=== PATIENT | female | born 1975 | race African-American/Black ===

== ENCOUNTER 2016-09-05 23:20 | Emergency (ER) | payer MEDICARE, MEDICAID ==
[~2016-09-05] VITALS: Ht 157.5 cm; Wt 79.0 kg
[~2016-09-05 23:20] MED LIST: DIVA-18 PO; QUET300T2 PO
[2016-09-06 01:45] VITALS: BP 120/80
== END 2016-09-06 02:38 | disposition home or self-care (01) ==
LOC: ER 23:20
DX: N93.9 Abnormal uterine and vaginal bleeding, unspecified (principal); F31.9 Bipolar disorder, unspecified; G40.909 Epilepsy, unspecified, not intractable, without status epilepticus; Z88.8 Allergy status to other drugs, medicaments and biological substances
CPT/HCPCS: 99283

== ENCOUNTER 2016-12-08 13:51 | Emergency (ER) | payer MEDICARE, MEDICAID ==
[~2016-12-08] VITALS: Ht 165.1 cm; Wt 80.0 kg
[2016-12-08 14:44] LABS: CLARITY URINE TURBID (CLEAR); COLOR URINE YELLOW (YELLOW); GLUCOSE URINE NEGATIVE (NEGATIVE); KETONES URINE NEGATIVE (NEGATIVE); LEUKOCYTE ESTERASE URINE TRACE (NEGATIVE); NITRITE URINE NEGATIVE (NEGATIVE); OCCULT BLOOD URINE TRACE (NEGATIVE); PH URINE 7.5 (4.5-8.0); PROTEIN URINE NEGATIVE (NEGATIVE); SPECIFIC GRAVITY URINE 1.022 (1.005-1.030); UROBILINOGEN URINE 0.2 E.U./dL (0.2-1.0)
[2016-12-08 14:47] LABS: BASOPHILS % 0.7 % (0.0-2.0); EOSINOPHILS % 0.7 % (0.0-5.0); HEMATOCRIT. 38.5 % (36.0-48.0); HEMOGLOBIN. 13.2 g/dL (12.0-16.0); LYMPHOCYTES % 33.3 % (20.0-50.0); MEAN CORPUSCULAR VOLUME 87.6 fL (81.0-99.0); MEAN PLATELET VOLUME 9.6 fl (7.4-10.4); MONOCYTES % 6.9 % (2.0-8.0); NEUTROPHILS % 58.4 % (40.0-76.0); PLATELET 188 x1000/uL (130-400); RED CELL DISTRIBUTION WIDTH 13.5 % (11.6-14.6)
[2016-12-08 14:48] LABS: UCG SCREEN NEGATIVE
[2016-12-08 14:52] LABS: CHLORIDE 108 mEq/L (98-107)
[2016-12-08 15:00] LABS: CARBON DIOXIDE 29 mEq/L (21-32); ETHANOL BLOOD < 10 mg/dL
[2016-12-08 15:20] LABS: *AMPHETAMINES SCREEN URINE NEGATIVE (NEGATIVE); *BARBITURATES SCREEN URINE NEGATIVE (NEGATIVE); *BENZODIAZEPINES SCREEN URINE NEGATIVE (NEGATIVE); *COCAINE SCREEN URINE NEGATIVE (NEGATIVE); CANNABINOID URINE SCREEN NEGATIVE (NEGATIVE); METHADONE URINE SCREEN NEGATIVE (NEGATIVE); OPIATES URINE SCREEN NEGATIVE (NEGATIVE); PHENCYCLIDINE URINE SCREEN NEGATIVE (NEGATIVE)
[2016-12-08 16:48] LABS: CARBAMAZEPINE 5.1 ug/mL (4-12)
[2016-12-08 20:33] LABS: CARBAMAZEPINE 4.5 ug/mL (4-12)
[2016-12-08 22:49] VITALS: BP 110/63
== END 2016-12-08 22:49 | disposition home or self-care (01) ==
LOC: ER 14:30
DX: T42.1X2A Poisoning by iminostilbenes, intentional self-harm, initial encounter (principal); F31.89 Other bipolar disorder; Y92.89 Other specified places as the place of occurrence of the external cause; G40.909 Epilepsy, unspecified, not intractable, without status epilepticus; Z88.8 Allergy status to other drugs, medicaments and biological substances; R45.851 Suicidal ideations
CPT/HCPCS: 36415; 80053; 80156; 80165; 80305; 80307; 80329; 81001; 81025; 85025; 93005; 99285; G0482

== ENCOUNTER → 2017-03-17 | Outpatient (CLI) | payer MEDICARE, MEDICAID | END | disposition home or self-care (01) | LOC: MRI 12:44 | PROVIDERS: ATTEND Neurological Surgery | DX: M54.2 Cervicalgia (principal) | CPT/HCPCS: 72141 ==

== ENCOUNTER 2017-08-21 21:21 | Emergency (ER) | payer MEDICAID, MEDICARE ==
[~2017-08-21] VITALS: Ht 160 cm; Wt 69.0 kg
[2017-08-21] MEDS ORDERED: CARB200T PO (22:10)
[2017-08-21] MEDS ORDERED: CITA10TA16 PO (22:10)
[2017-08-21 22:26] VITALS: BP 114/58
[2017-08-21] MEDS ORDERED: ONDANSETRON 4MG ODT PO STA (22:30)
[2017-08-21 22:53] LABS: BASOPHILS % 0.2 % (0.0-2.0); HEMATOCRIT. 42.7 % (36.0-48.0); HEMOGLOBIN. 14.5 g/dL (12.0-16.0); LYMPHOCYTES % 27.9 % (20.0-50.0); MEAN CORPUSCULAR HEMOGLOBIN 31.3 pg (28.0-32.0); MEAN CORPUSCULAR VOLUME 92.1 fL (81.0-99.0); MEAN PLATELET VOLUME 10.1 fl (7.4-10.4); MONOCYTES % 7.5 % (2.0-8.0); NEUTROPHILS % 64.4 % (40.0-76.0); PLATELET 179 x1000/uL (130-400); RED BLOOD CELL COUNT 4.64 mill/uL (4.2-5.4); RED CELL DISTRIBUTION WIDTH 13.9 % (11.6-14.6)
[2017-08-21 22:54] LABS: CHLORIDE 102 mEq/L (98-107)
[2017-08-21 22:56] LABS: INR 1.3; PROTHROMBIN TIME 13.5 sec (9.4-11.6)
[2017-08-21 23:01] LABS: HCG SCREEN NEGATIVE
[2017-08-21 23:35] LABS: AMMONIA 18 uMol/L (<32)
== END 2017-08-22 00:42 | disposition home or self-care (01) ==
LOC: ER 21:59
DX: F31.9 Bipolar disorder, unspecified (principal); T42.6X5A Adverse effect of other antiepileptic and sedative-hypnotic drugs, initial encounter; R56.9 Unspecified convulsions; R74.0 Nonspecific elevation of levels of transaminase and lactic acid dehydrogenase [LDH]; Y92.9 Unspecified place or not applicable
CPT/HCPCS: 36415; 71045; 80053; 80165; 82140; 82962; 83690; 84703; 85025; 85610; 99285; Q0162

== ENCOUNTER 2017-08-23 13:24 | Inpatient (IN) | payer MEDICARE, MEDICAID ==
[~2017-08-23] VITALS: Ht 167.6 cm; Wt 93.0 kg
[~2017-08-23 13:24] MED LIST changes: +CARB200T PO; +CITA10TA16 PO
[2017-08-23] MEDS ORDERED: SODIUM CHLORIDE 0.9% 1,000 ML IV ONE (13:50)
[2017-08-23 14:35] LABS: CLARITY URINE TURBID (CLEAR); COLOR URINE DARK YELLOW (YELLOW); KETONES URINE TRACE (NEGATIVE); LEUKOCYTE ESTERASE URINE 1+ (NEGATIVE); NITRITE URINE POSITIVE (NEGATIVE); OCCULT BLOOD URINE 2+ (NEGATIVE); PH URINE 5.5 (4.5-8.0); PROTEIN URINE 3+ (NEGATIVE); SPECIFIC GRAVITY URINE 1.024 (1.005-1.030)
[2017-08-23 14:55] LABS: *AMPHETAMINES SCREEN URINE NEGATIVE (NEGATIVE); *BARBITURATES SCREEN URINE NEGATIVE (NEGATIVE); *BENZODIAZEPINES SCREEN URINE NEGATIVE (NEGATIVE); *COCAINE SCREEN URINE NEGATIVE (NEGATIVE); CANNABINOID URINE SCREEN NEGATIVE (NEGATIVE); METHADONE URINE SCREEN NEGATIVE (NEGATIVE); OPIATES URINE SCREEN NEGATIVE (NEGATIVE); PHENCYCLIDINE URINE SCREEN NEGATIVE (NEGATIVE)
[2017-08-23 15:18] LABS: HEMATOCRIT. 43.1 % (36.0-48.0); HEMOGLOBIN. 14.5 g/dL (12.0-16.0); MEAN CORPUSCULAR HEMOGLOBIN 31.5 pg (28.0-32.0); MEAN CORPUSCULAR VOLUME 93.7 fL (81.0-99.0); MEAN PLATELET VOLUME 10.2 fl (7.4-10.4); PLATELET 139 x1000/uL (130-400)
[2017-08-23 15:19] LABS: CHLORIDE 99 mEq/L (98-107)
[2017-08-23 15:24] LABS: ETHANOL BLOOD < 10 mg/dL
[2017-08-23 15:27] LABS: PROTHROMBIN TIME 68.1 sec (9.4-11.6)
[2017-08-23 15:30] LABS: AMMONIA 278 uMol/L (<32); CARBAMAZEPINE 8.5 ug/mL (4-12); INR 6.6
[2017-08-23 15:34] LABS: HCG SCREEN NEGATIVE
[2017-08-23] MEDS ORDERED: SODIUM CHLORIDE 0.9% 1000ML BAG (SEPSIS BOLUS) IV ONE (15:45)
[2017-08-23] MEDS ORDERED: LACTULOSE 20G/30ML UDC PO ONE (15:45)
[2017-08-23] MEDS ORDERED: PIPERACILLIN/TAZ 3.375G PREMIX 50 ML IV ONE (15:45)
[2017-08-23 16:22] LABS: PROTHROMBIN TIME 68.8 sec (9.4-11.6)
[2017-08-23 16:28] LABS: INR 6.6
[2017-08-23] MEDS ORDERED: VANCOMYCIN 1 G PREMIX 200 ML IV SCH (16:30)
[2017-08-23 16:54] LABS: PLATELET ESTIMATE NORMAL
[2017-08-23] MEDS ORDERED: DEXTROSE 50% WATER 50ML SYRINGE IV ONE ×2 (17:15→17:30)
[2017-08-23] MEDS ORDERED: ACETYLCYSTEINE IV ONE ×3 (17:30→23:30)
[2017-08-23] MEDS ORDERED: SODIUM CHLORIDE 0.9% IV ONE ×3 (17:30→23:30)
[2017-08-23] MEDS ORDERED: ACETYLCYSTEINE 200MG/ML 20% VIAL 30ML (INJ) IV ONE ×2 (17:30→21:45)
[2017-08-23] MEDS ORDERED: PHYTONADIONE 10MG/ML AMP IV SCH (18:00)
[2017-08-23] MEDS ORDERED: PHYTONADIONE 10MG/ML AMP IV ONE (18:00)
[2017-08-23] MEDS ORDERED: LORAZEPAM 2MG/ML CPJ IV ONE (18:45)
[2017-08-23] MEDS ORDERED: DEXT 5%/0.9% NACL 1,000 ML IV ONE (18:45)
[2017-08-23 20:45] VITALS: BP 123/64
[2017-08-23 21:00] VITALS: BP 123/64
[2017-08-23 21:25] VITALS: BP 127/99
[2017-08-23] MEDS ORDERED: PIPERACILLIN/TAZOBACTAM 2.25 G in DEXTROSE 5% WATER 50 ML IV SCH (22:00)
[2017-08-23] MEDS: DEXT 5%/0.45% NACL 1000ML 1,000 ML IV SCH (23:21)
[2017-08-23] MEDS: LACTULOSE 20G/30ML UDC PO SCH (23:21)
[2017-08-23 23:22] VITALS: BP 139/80
[2017-08-23] MEDS: PHYTONADIONE 10MG/ML AMP IV SCH (23:50)
[2017-08-23 23:52] VITALS: BP 128/70
[2017-08-23 23:53] LABS: CREATINE KINASE 260 IU/L (26-192)
[2017-08-24] VITALS (60 sets, daily range): BP systolic 106–207; BP diastolic 53–173
[2017-08-24] MEDS ORDERED: PHYTONADIONE 10MG/ML AMP IV ONE
[2017-08-24] MEDS: PIPERACILLIN/TAZ 3.375G PREMIX 50 ML IV SCH ×3 (01:12→16:00)
[2017-08-24 06:00] LABS: HEMATOCRIT. 39.2 % (36.0-48.0); HEMOGLOBIN. 13.5 g/dL (12.0-16.0); MEAN CORPUSCULAR HEMOGLOBIN 31.6 pg (28.0-32.0); MEAN CORPUSCULAR VOLUME 91.4 fL (81.0-99.0); MEAN PLATELET VOLUME 9.9 fl (7.4-10.4); RED BLOOD CELL COUNT 4.29 mill/uL (4.2-5.4); RED CELL DISTRIBUTION WIDTH 13.8 % (11.6-14.6)
[2017-08-24 06:07] LABS: CHLORIDE 108 mEq/L (98-107); PARTIAL THROMBOPLASTIN TIME 45.7 sec (23.4-31.0)
[2017-08-24 06:12] LABS: AMYLASE 89 IU/L (25-115)
[2017-08-24 06:14] LABS: PROTHROMBIN TIME 74.9 sec (9.4-11.6)
[2017-08-24 06:35] LABS: INR 7.2
[2017-08-24 06:42] LABS: AMMONIA 279 uMol/L (<32)
[2017-08-24] MEDS: LACTULOSE 20G/30ML UDC PO SCH ×3 (06:51→18:54)
[2017-08-24] MEDS: DEXT 5%/0.45% NACL 1000ML 1,000 ML IV SCH ×3 (06:51→21:25)
[2017-08-24] MEDS: PHYTONADIONE 10MG/ML AMP IV SCH (06:51)
[2017-08-24] MEDS ORDERED: PANTOPRAZOLE SODIUM 40 MG/VIAL IV SCH (09:00)
[2017-08-24] MEDS ORDERED: ETOMIDATE 2MG/ML 10ML VIAL IV ONE (09:21)
[2017-08-24] MEDS ORDERED: VECURONIUM BROMIDE 10 MG/VIAL IV ONE (09:21)
[2017-08-24 10:27] LABS: PLATELET 112 x1000/uL (130-400)
[2017-08-24 11:33] LABS: HEPATITIS B SURFACE ANTIGEN NEGATIVE
[2017-08-24 12:01] LABS: HEPATITIS B CORE AB IGM NEGATIVE
[2017-08-24 12:02] LABS: HEPATITIS A AB IGM NEGATIVE (NEGATIVE)
[2017-08-24 12:40] LABS: BG BASE EXCESS -3.4 mmol/L (-2.0-2.0); BG CARBOXYHEMOGLOBIN 0.8 % (0.5-1.5); BG DEOXYHEMOGLOBIN 6.5 % (0.0-5.0); BG FRACTION INSPIRED OXYGEN 21; BG HCO3 ACT 16.7 mmol/L (22.0-26.0); BG OXYGEN SATURATION 93.4 % (92.0-98.5); BG OXYHEMOGLOBIN 92.7 % (94.0-97.0); BG PCO2 19.8 mmHg (35.0-45.0); BG PH 7.544 (7.350-7.450); BG PO2 64.5 mmHg (75.0-100.0); BG SAMPLE SITE RIGHT RADIAL; BG TOTAL HEMOGLOBIN 13.5 g/dL (12.0-18.0); BG VENT MODE ROOM AIR
[2017-08-24] MEDS ORDERED: NOREPINEPHRINE 16 MG in DEXT 5% WATER 484 ML IV PRN (15:30)
[2017-08-24] MEDS ORDERED: FENTANYL CITRATE/PF 500 MCG in SODIUM CHLORIDE 0.9% 40 ML IV PRN (15:30)
[2017-08-24 17:23] LABS: BG CARBOXYHEMOGLOBIN 0.6 % (0.5-1.5); BG FRACTION INSPIRED OXYGEN 70; BG HCO3 ACT 20.4 mmol/L (22.0-26.0); BG METHEMOGLOBIN 0.2 % (0.0-1.5); BG OXYHEMOGLOBIN 96.2 % (94.0-97.0); BG PCO2 43.1 mmHg (35.0-45.0); BG PH 7.292 (7.350-7.450); BG PO2 108.5 mmHg (75.0-100.0); BG SAMPLE SITE RIGHT RADIAL; BG TIDAL VOLUME(mL) 500 mL; BG TOTAL HEMOGLOBIN 14.8 g/dL (12.0-18.0); BG VENT MODE VENT - A/C; BG VENT RATE 12 set
[2017-08-24 17:25] LABS: HEMATOCRIT 41.3 % (36.0-48.0); HEMOGLOBIN 14.3 g/dL (12.0-16.0)
[2017-08-24] MEDS ORDERED: LABETALOL 5MG/ML SYR 20 MG/4 ML SYRINGE IV PRN (21:15)
[2017-08-24] MEDS: PANTOPRAZOLE SODIUM 40 MG/VIAL IV SCH (21:25)
[2017-08-24] MEDS: MIDAZOLAM HCL 100 MG in DEXT 5% WATER 80 ML IV PRN (23:28)
[2017-08-25] VITALS (57 sets, daily range): BP systolic 46–268; BP diastolic 32–239
[2017-08-25] MEDS: LACTULOSE 20G/30ML UDC PO SCH ×2 (00:16→06:05)
[2017-08-25] MEDS: PIPERACILLIN/TAZ 3.375G PREMIX 50 ML IV SCH ×3 (00:16→18:44)
[2017-08-25] MEDS: LORAZEPAM 2MG/ML CPJ IV PRN ×3 (01:25→07:04)
[2017-08-25 02:00] LABS: HEMATOCRIT 39.5 % (36.0-48.0); HEMOGLOBIN 13.4 g/dL (12.0-16.0)
[2017-08-25] MEDS ORDERED: ACETAMINOPHEN 650MG/20.3ML UDC PO PRN (05:45)
[2017-08-25] MEDS: DEXT 5%/0.45% NACL 1000ML 1,000 ML IV SCH ×3 (06:06→20:53)
[2017-08-25 06:14] LABS: CHLORIDE 110 mEq/L (98-107)
[2017-08-25 06:22] LABS: INR 3.7; PROTHROMBIN TIME 38.3 sec (9.4-11.6)
[2017-08-25 06:45] LABS: HEMATOCRIT. 38.5 % (36.0-48.0); HEMOGLOBIN. 13.4 g/dL (12.0-16.0); MEAN CORPUSCULAR HEMOGLOBIN 31.5 pg (28.0-32.0); MEAN CORPUSCULAR VOLUME 90.7 fL (81.0-99.0); PLATELET 114 x1000/uL (130-400); RED BLOOD CELL COUNT 4.24 mill/uL (4.2-5.4); RED CELL DISTRIBUTION WIDTH 13.6 % (11.6-14.6)
[2017-08-25 06:51] LABS: AMMONIA 402 uMol/L (<32)
[2017-08-25] MEDS ORDERED: LORAZEPAM 2MG/ML CPJ IV SCH ×2 (07:00→07:30)
[2017-08-25] MEDS ORDERED: LORAZEPAM 2MG/ML CPJ ONE (07:05)
[2017-08-25] MEDS ORDERED: LORAZEPAM 20 MG in DEXT 5% WATER 90 ML IV PRN (07:30)
[2017-08-25] MEDS ORDERED: PROPOFOL 10MG/ML 100ML 100 ML IV PRN ×2 (07:45→08:15)
[2017-08-25 07:48] LABS: BG BASE EXCESS -5.9 mmol/L (-2.0-2.0); BG CARBOXYHEMOGLOBIN 0.5 % (0.5-1.5); BG DEOXYHEMOGLOBIN 1.6 % (0.0-5.0); BG HCO3 ACT 15.9 mmol/L (22.0-26.0); BG METHEMOGLOBIN 0.3 % (0.0-1.5); BG OXYGEN SATURATION 98.4 % (92.0-98.5); BG OXYHEMOGLOBIN 97.6 % (94.0-97.0); BG PCO2 22.6 mmHg (35.0-45.0); BG PH 7.464 (7.350-7.450); BG PO2 121.2 mmHg (75.0-100.0); BG SAMPLE SITE RIGHT RADIAL; BG TIDAL VOLUME(mL) 500 mL; BG TOTAL HEMOGLOBIN 13.4 g/dL (12.0-18.0); BG VENT MODE VENT - A/C; BG VENT RATE 12 set
[2017-08-25] MEDS ORDERED: SODIUM BICARBONATE 8.4% 1 MEQ/ML 50ML SYR IV SCH (08:00)
[2017-08-25] MEDS ORDERED: FENTANYL CITRATE/PF 500 MCG in SODIUM CHLORIDE 0.9% 40 ML IV PRN (08:00)
[2017-08-25] MEDS ORDERED: PHENYTOIN SODIUM 1,000 MG in SODIUM CHLORIDE 0.9% 100 ML IV SCH (08:00)
[2017-08-25 08:06] LABS: PARTIAL THROMBOPLASTIN TIME 41.7 sec (23.4-31.0)
[2017-08-25 08:08] LABS: PHOSPHORUS 1.8 mg/dL (2.5-4.9)
[2017-08-25] MEDS ORDERED: LORAZEPAM 2MG/ML CPJ IM SCH ×2 (08:13→08:45)
[2017-08-25] MEDS ORDERED: LIDOCAINE HCL/PF 1% 10 MG/ML 5ML VIAL ONE (08:54)
[2017-08-25] MEDS ORDERED: SODIUM BICARBONATE 4% (2.4MEQ) 5ML VIAL IV ONE (08:55)
[2017-08-25] MEDS ORDERED: VANCOMYCIN 1,500 MG in SODIUM CHLORIDE 0.9% 250 ML IV SCH (10:00)
[2017-08-25] MEDS ORDERED: DEXT 5% IV SCH (11:00)
[2017-08-25] MEDS ORDERED: WATER IV SCH (11:00)
[2017-08-25] MEDS ORDERED: POTASSIUM PHOS M BASIC D BASIC IV SCH (11:00)
[2017-08-25 11:12] LABS: BG BASE EXCESS -4.9 mmol/L (-2.0-2.0); BG CARBOXYHEMOGLOBIN 0.1 % (0.5-1.5); BG DEOXYHEMOGLOBIN 2.6 % (0.0-5.0); BG FRACTION INSPIRED OXYGEN 40; BG HCO3 ACT 17.2 mmol/L (22.0-26.0); BG METHEMOGLOBIN 0.2 % (0.0-1.5); BG OXYGEN SATURATION 97.4 % (92.0-98.5); BG OXYHEMOGLOBIN 97.1 % (94.0-97.0); BG PCO2 24.2 mmHg (35.0-45.0); BG PH 7.469 (7.350-7.450); BG PO2 107.2 mmHg (75.0-100.0); BG SAMPLE SITE RIGHT RADIAL; BG TIDAL VOLUME(mL) 500 mL; BG TOTAL HEMOGLOBIN 12.1 g/dL (12.0-18.0); BG VENT MODE VENT - A/C; BG VENT RATE 12 set
[2017-08-25 11:29] LABS: PLATELET ESTIMATE SLIGHTLY DECREASED
[2017-08-25] MEDS: SODIUM BICARBONATE 100 MEQ in DEXTROSE 5% WATER 1,000 ML IV SCH ×2 (12:05→18:47)
[2017-08-25] MEDS: PANTOPRAZOLE SODIUM 40 MG/VIAL IV SCH ×2 (12:07→20:11)
[2017-08-25 12:53] LABS: HEMOGLOBIN 11.3 g/dL (12.0-16.0)
[2017-08-25] MEDS ORDERED: PHYTONADIONE 10MG/ML AMP SUBCUT SCH (13:30)
[2017-08-25] MEDS: LACTULOSE 300 ML in WATER FOR INJECTION,STERILE 700 ML PR SCH (16:00)
[2017-08-25] MEDS ORDERED: PHENYTOIN SODIUM 100MG/2ML VIAL IV SCH (17:00)
[2017-08-25] MEDS ORDERED: PHENYTOIN SODIUM 300MG in SODIUM CHLORIDE 0.9% 50ML IV SCH (18:00)
[2017-08-25] MEDS ORDERED: SORBITOL 70% SOLN 30ML PO NR (19:30)
[2017-08-25] MEDS ORDERED: METOCLOPRAMIDE HCL 10MG/2ML VIAL IV NR (19:30)
[2017-08-25] MEDS: MIDAZOLAM HCL 100 MG in DEXT 5% WATER 80 ML IV PRN (20:01)
[2017-08-26] VITALS (96 sets, daily range): BP systolic 84–118; BP diastolic 47–76
[2017-08-26] MEDS ORDERED: VANCOMYCIN 1 G PREMIX 200 ML IV SCH
[2017-08-26] MEDS: PIPERACILLIN/TAZ 3.375G PREMIX 50 ML IV SCH ×4 (00:06→23:23)
[2017-08-26] MEDS ORDERED: RACEPINEPHRINE 2.25% 0.5ML NEB VIAL HHN NR (01:45)
[2017-08-26] MEDS: DEXT 5%/0.45% NACL 1000ML 1,000 ML IV SCH ×4 (05:07→19:01)
[2017-08-26 05:54] LABS: INR 3.3; PROTHROMBIN TIME 34.3 sec (9.4-11.6)
[2017-08-26 05:56] LABS: HEMATOCRIT. 36.9 % (36.0-48.0); HEMOGLOBIN. 12.8 g/dL (12.0-16.0); LYMPHOCYTES % 10.5 % (20.0-50.0); MEAN CORPUSCULAR HEMOGLOBIN 31.7 pg (28.0-32.0); MEAN CORPUSCULAR VOLUME 91.7 fL (81.0-99.0); NEUTROPHILS % 80.6 % (40.0-76.0); PLATELET 81 x1000/uL (130-400); RED BLOOD CELL COUNT 4.03 mill/uL (4.2-5.4); RED CELL DISTRIBUTION WIDTH 13.9 % (11.6-14.6)
[2017-08-26 05:57] LABS: BASOPHILS % 0.2 % (0.0-2.0); EOSINOPHILS % 3.5 % (0.0-5.0); MONOCYTES % 5.2 % (2.0-8.0)
[2017-08-26] MEDS: MIDAZOLAM HCL 100 MG in DEXT 5% WATER 80 ML IV PRN ×3 (06:09→11:03)
[2017-08-26 06:15] LABS: PHOSPHORUS 2.1 mg/dL (2.5-4.9)
[2017-08-26 06:30] LABS: CHLORIDE 112 mEq/L (98-107)
[2017-08-26 06:37] LABS: AMMONIA 266 uMol/L (<32)
[2017-08-26] MEDS ORDERED: KCL 20MEQ/100ML PREMIX 100 ML IV ONE (06:45)
[2017-08-26 08:59] LABS: BG BASE EXCESS -3.5 mmol/L (-2.0-2.0); BG CARBOXYHEMOGLOBIN 0.3 % (0.5-1.5); BG DEOXYHEMOGLOBIN 2.2 % (0.0-5.0); BG FRACTION INSPIRED OXYGEN 40; BG HCO3 ACT 17.9 mmol/L (22.0-26.0); BG METHEMOGLOBIN 0.3 % (0.0-1.5); BG OXYGEN SATURATION 97.8 % (92.0-98.5); BG OXYHEMOGLOBIN 97.2 % (94.0-97.0); BG PCO2 23.8 mmHg (35.0-45.0); BG PH 7.494 (7.350-7.450); BG PO2 105.5 mmHg (75.0-100.0); BG SAMPLE SITE LEFT RADIAL; BG TIDAL VOLUME(mL) 500 mL; BG TOTAL HEMOGLOBIN 13.6 g/dL (12.0-18.0); BG VENT MODE VENT - A/C; BG VENT RATE 12 set
[2017-08-26] MEDS ORDERED: POTASSIUM CHLORIDE INJ 60 MEQ in DEXT 5% WATER 500 ML IV SCH (09:00)
[2017-08-26] MEDS: PANTOPRAZOLE SODIUM 40 MG/VIAL IV SCH ×2 (10:32→20:52)
[2017-08-26] MEDS ORDERED: DEXT 5% IV SCH (11:00)
[2017-08-26] MEDS ORDERED: WATER IV SCH (11:00)
[2017-08-26] MEDS ORDERED: POTASSIUM PHOS M BASIC D BASIC IV SCH (11:00)
[2017-08-26] MEDS ORDERED: PHYTONADIONE 10MG/ML AMP SUBCUT NR (11:23)
[2017-08-26] MEDS: LACTULOSE 300 ML in WATER FOR INJECTION,STERILE 700 ML PR SCH (11:50)
[2017-08-26] MEDS: LEVETIRACETAM 500MG PREMIX 100 ML IV SCH ×2 (11:50→22:11)
[2017-08-26] MEDS ORDERED: SORBITOL 70% SOLN 30ML PO SCH (12:15)
[2017-08-26] MEDS: PROPOFOL 10MG/ML 100ML 100 ML IV PRN ×3 (13:20→23:24)
[2017-08-26] MEDS: VANCOMYCIN 750 MG PREMIX 150 ML IV SCH (15:12)
[2017-08-26] MEDS ORDERED: KCL 20MEQ/100ML PREMIX 100 ML IV NR (20:00)
[2017-08-26] MEDS ORDERED: PHENYTOIN SODIUM 300 MG in SODIUM CHLORIDE 0.9% 50 ML IV SCH (21:00)
[2017-08-27] VITALS (38 sets, daily range): BP systolic 91–118; BP diastolic 43–72
[2017-08-27] MEDS: VANCOMYCIN 750 MG PREMIX 150 ML IV SCH (01:24)
[2017-08-27] MEDS: MIDAZOLAM HCL 100 MG in DEXT 5% WATER 80 ML IV PRN (02:15)
[2017-08-27] MEDS: PROPOFOL 10MG/ML 100ML 100 ML IV PRN ×2 (05:05→20:00)
[2017-08-27] MEDS: DEXT 5%/0.45% NACL 1000ML 1,000 ML IV SCH ×2 (05:06→16:04)
[2017-08-27 06:26] LABS: HEMOGLOBIN. 11.3 g/dL (12.0-16.0); MEAN CORPUSCULAR HEMOGLOBIN 32.1 pg (28.0-32.0); MEAN CORPUSCULAR VOLUME 90.6 fL (81.0-99.0); MEAN PLATELET VOLUME 9.7 fl (7.4-10.4); PLATELET 73 x1000/uL (130-400); RED BLOOD CELL COUNT 3.53 mill/uL (4.2-5.4); RED CELL DISTRIBUTION WIDTH 14.3 % (11.6-14.6)
[2017-08-27 06:32] LABS: CHLORIDE 110 mEq/L (98-107)
[2017-08-27 06:39] LABS: AMMONIA 180 uMol/L (<32); PHOSPHORUS 2.3 mg/dL (2.5-4.9)
[2017-08-27 06:41] LABS: INR 2.9; PROTHROMBIN TIME 30.5 sec (9.4-11.6)
[2017-08-27] MEDS: PIPERACILLIN/TAZ 3.375G PREMIX 50 ML IV SCH ×3 (08:45→22:53)
[2017-08-27 09:27] LABS: BG BASE EXCESS -1.2 mmol/L (-2.0-2.0); BG CARBOXYHEMOGLOBIN 0.3 % (0.5-1.5); BG DEOXYHEMOGLOBIN 1.2 % (0.0-5.0); BG FRACTION INSPIRED OXYGEN 80; BG METHEMOGLOBIN 0.3 % (0.0-1.5); BG OXYGEN SATURATION 98.8 % (92.0-98.5); BG OXYHEMOGLOBIN 98.2 % (94.0-97.0); BG PCO2 21.2 mmHg (35.0-45.0); BG PH 7.571 (7.350-7.450); BG PO2 164.9 mmHg (75.0-100.0); BG SAMPLE SITE RIGHT RADIAL; BG TIDAL VOLUME(mL) 500 mL; BG TOTAL HEMOGLOBIN 12.1 g/dL (12.0-18.0); BG VENT MODE VENT - A/C; BG VENT RATE 12 set
[2017-08-27] MEDS ORDERED: SORBITOL 70% SOLN 30ML PO NR (09:30)
[2017-08-27 10:40] LABS: PLATELET ESTIMATE DECREASED
[2017-08-27] MEDS ORDERED: LACTULOSE 20G/30ML UDC ONE (10:44)
[2017-08-27] MEDS: LACTULOSE 300 ML in WATER FOR INJECTION,STERILE 700 ML PR SCH (10:50)
[2017-08-27] MEDS: PANTOPRAZOLE SODIUM 40 MG/VIAL IV SCH (10:50)
[2017-08-27] MEDS ORDERED: POTASSIUM CHLORIDE INJ 40 MEQ in DEXT 5% WATER 250 ML IV NR (11:00)
[2017-08-27] MEDS ORDERED: PHYTONADIONE 10MG/ML AMP SUBCUT NR (11:45)
[2017-08-27] MEDS: LACTULOSE 20G/30ML UDC NG SCH ×3 (12:00→22:53)
[2017-08-27] MEDS: LEVETIRACETAM 500MG PREMIX 100 ML IV SCH ×2 (16:04→22:55)
[2017-08-27 17:12] LABS: ANTI-DNA DOUBLE STRANDED QUANT 1 IU/mL (0-9)
[2017-08-27] MEDS: LORAZEPAM 2MG/ML CPJ IV PRN (20:01)
[2017-08-28] VITALS (38 sets, daily range): BP systolic 91–114; BP diastolic 37–71
[2017-08-28] MEDS: PANTOPRAZOLE SODIUM 40 MG/VIAL IV SCH ×3 (01:03→21:54)
[2017-08-28] MEDS: PROPOFOL 10MG/ML 100ML 100 ML IV PRN ×2 (01:03→05:34)
[2017-08-28] MEDS: LACTULOSE 20G/30ML UDC NG SCH ×3 (05:33→17:47)
[2017-08-28] MEDS: DEXT 5%/0.45% NACL 1000ML 1,000 ML IV SCH ×3 (05:35→17:47)
[2017-08-28 05:43] LABS: HEMATOCRIT. 32.6 % (36.0-48.0); HEMOGLOBIN. 11.3 g/dL (12.0-16.0); MEAN CORPUSCULAR HEMOGLOBIN 31.8 pg (28.0-32.0); MEAN CORPUSCULAR VOLUME 92.1 fL (81.0-99.0); MEAN PLATELET VOLUME 9.8 fl (7.4-10.4); PLATELET 90 x1000/uL (130-400); RED BLOOD CELL COUNT 3.54 mill/uL (4.2-5.4); RED CELL DISTRIBUTION WIDTH 14.3 % (11.6-14.6)
[2017-08-28] MEDS: MIDAZOLAM HCL 100 MG in DEXT 5% WATER 80 ML IV PRN (05:52)
[2017-08-28 05:56] LABS: INR 2.4; PROTHROMBIN TIME 24.8 sec (9.4-11.6)
[2017-08-28 06:10] LABS: CHLORIDE 109 mEq/L (98-107)
[2017-08-28 06:24] LABS: AMMONIA 144 uMol/L (<32)
[2017-08-28 08:33] LABS: BG BASE EXCESS 0.1 mmol/L (-2.0-2.0); BG CARBOXYHEMOGLOBIN 0.3 % (0.5-1.5); BG DEOXYHEMOGLOBIN 0.9 % (0.0-5.0); BG FRACTION INSPIRED OXYGEN 60; BG HCO3 ACT 20.7 mmol/L (22.0-26.0); BG METHEMOGLOBIN 0.3 % (0.0-1.5); BG OXYGEN SATURATION 99.1 % (92.0-98.5); BG OXYHEMOGLOBIN 98.5 % (94.0-97.0); BG PCO2 23.1 mmHg (35.0-45.0); BG PH 7.571 (7.350-7.450); BG PO2 182.2 mmHg (75.0-100.0); BG SAMPLE SITE LEFT RADIAL; BG TIDAL VOLUME(mL) 500 mL; BG TOTAL HEMOGLOBIN 11.7 g/dL (12.0-18.0); BG VENT MODE VENT - A/C; BG VENT RATE 12 set
[2017-08-28] MEDS ORDERED: LEVETIRACETAM 500MG PREMIX 100 ML IV SCH (09:00)
[2017-08-28] MEDS: PIPERACILLIN/TAZ 3.375G PREMIX 50 ML IV SCH ×2 (09:52→17:47)
[2017-08-28] MEDS: LEVETIRACETAM 750 MG in SODIUM CHLORIDE 0.9% 100 ML IV SCH ×2 (09:53→21:54)
[2017-08-28] MEDS ORDERED: POTASSIUM PHOS,M-BASIC-D-BASIC 20 MMOL in DEXT 5% WATER 243.3333 ML IV SCH (10:00)
[2017-08-28] MEDS ORDERED: VANCOMYCIN 1 G PREMIX 200 ML IV SCH (11:00)
[2017-08-28] MEDS: RIFAXIMIN 550 MG TABLET PO SCH ×2 (13:01→21:54)
[2017-08-28 15:09] LABS: ANA IFA Negative (.)
[2017-08-28 22:46] LABS: PLATELET ESTIMATE MARKEDLY DECREASED
[2017-08-29] VITALS (24 sets, daily range): BP systolic 106–120; BP diastolic 59–72
[2017-08-29] MEDS: PIPERACILLIN/TAZ 3.375G PREMIX 50 ML IV SCH ×3 (00:16→18:36)
[2017-08-29] MEDS: LACTULOSE 20G/30ML UDC NG SCH ×4 (00:16→18:36)
[2017-08-29 04:57] LABS: HEMATOCRIT. 34.8 % (36.0-48.0); MEAN CORPUSCULAR HEMOGLOBIN 31.6 pg (28.0-32.0); MEAN CORPUSCULAR VOLUME 91.9 fL (81.0-99.0); RED BLOOD CELL COUNT 3.79 mill/uL (4.2-5.4); RED CELL DISTRIBUTION WIDTH 14.5 % (11.6-14.6)
[2017-08-29 05:40] LABS: INR 1.8; PARTIAL THROMBOPLASTIN TIME 56.2 sec (23.4-31.0); PROTHROMBIN TIME 19.2 sec (9.4-11.6)
[2017-08-29] MEDS: DEXT 5%/0.45% NACL 1000ML 1,000 ML IV SCH (07:54)
[2017-08-29 09:04] LABS: BG BASE EXCESS 0.4 mmol/L (-2.0-2.0); BG CARBOXYHEMOGLOBIN 0.3 % (0.5-1.5); BG DEOXYHEMOGLOBIN 0.9 % (0.0-5.0); BG FRACTION INSPIRED OXYGEN 60; BG HCO3 ACT 20.8 mmol/L (22.0-26.0); BG METHEMOGLOBIN 0.1 % (0.0-1.5); BG OXYGEN SATURATION 99.1 % (92.0-98.5); BG OXYHEMOGLOBIN 98.7 % (94.0-97.0); BG PCO2 22.5 mmHg (35.0-45.0); BG PH 7.583 (7.350-7.450); BG PO2 181.8 mmHg (75.0-100.0); BG SAMPLE SITE RIGHT RADIAL; BG TIDAL VOLUME(mL) 500 mL; BG TOTAL HEMOGLOBIN 11.9 g/dL (12.0-18.0); BG VENT MODE VENT - A/C; BG VENT RATE 12 set
[2017-08-29] MEDS: LEVETIRACETAM 750 MG in SODIUM CHLORIDE 0.9% 100 ML IV SCH ×2 (10:16→21:20)
[2017-08-29] MEDS: PANTOPRAZOLE SODIUM 40 MG/VIAL IV SCH ×2 (10:16→21:22)
[2017-08-29] MEDS: RIFAXIMIN 550 MG TABLET PO SCH ×2 (10:16→21:19)
[2017-08-29 12:32] LABS: PLATELET ESTIMATE NORMAL
[2017-08-29 12:33] LABS: MEAN PLATELET VOLUME 9.7 fl (7.4-10.4); PLATELET 94 x1000/uL (130-400)
[2017-08-30] VITALS (26 sets, daily range): BP systolic 111–123; BP diastolic 63–76
[2017-08-30] MEDS: LACTULOSE 20G/30ML UDC NG SCH ×4 (00:09→18:21)
[2017-08-30] MEDS: PIPERACILLIN/TAZ 3.375G PREMIX 50 ML IV SCH ×3 (00:09→16:28)
[2017-08-30 04:56] LABS: HEMATOCRIT. 33.7 % (36.0-48.0); HEMOGLOBIN. 11.7 g/dL (12.0-16.0); MEAN CORPUSCULAR HEMOGLOBIN 31.7 pg (28.0-32.0); MEAN CORPUSCULAR VOLUME 91.5 fL (81.0-99.0); RED BLOOD CELL COUNT 3.68 mill/uL (4.2-5.4); RED CELL DISTRIBUTION WIDTH 14.7 % (11.6-14.6)
[2017-08-30 05:22] LABS: AMMONIA 90 uMol/L (<32)
[2017-08-30 05:25] LABS: PHOSPHORUS 2.9 mg/dL (2.5-4.9)
[2017-08-30] MEDS: RIFAXIMIN 550 MG TABLET PO SCH ×2 (08:28→21:18)
[2017-08-30] MEDS: PANTOPRAZOLE SODIUM 40 MG/VIAL IV SCH ×2 (08:28→21:18)
[2017-08-30 08:59] LABS: BG BASE EXCESS -4.9 mmol/L (-2.0-2.0); BG CARBOXYHEMOGLOBIN 0.1 % (0.5-1.5); BG DEOXYHEMOGLOBIN 1.4 % (0.0-5.0); BG FRACTION INSPIRED OXYGEN 60; BG HCO3 ACT 15.7 mmol/L (22.0-26.0); BG METHEMOGLOBIN 0.3 % (0.0-1.5); BG OXYGEN SATURATION 98.6 % (92.0-98.5); BG OXYHEMOGLOBIN 98.2 % (94.0-97.0); BG PH 7.536 (7.350-7.450); BG PO2 139.4 mmHg (75.0-100.0); BG SAMPLE SITE RIGHT RADIAL; BG TIDAL VOLUME(mL) 500 mL; BG TOTAL HEMOGLOBIN 11.3 g/dL (12.0-18.0); BG VENT MODE VENT - A/C; BG VENT RATE 12 set
[2017-08-30] MEDS: LEVETIRACETAM 750 MG in SODIUM CHLORIDE 0.9% 100 ML IV SCH ×2 (09:25→22:10)
[2017-08-30] MEDS: VANCOMYCIN 750 MG PREMIX 150 ML IV SCH (12:30)
[2017-08-30 13:27] LABS: PLATELET ESTIMATE SLIGHTLY DECREASED
[2017-08-30 15:13] LABS: MEAN PLATELET VOLUME 9.2 fl (7.4-10.4); PLATELET 96 x1000/uL (130-400)
[2017-08-30 19:10] LABS: BG BASE EXCESS -0.6 mmol/L (-2.0-2.0); BG CARBOXYHEMOGLOBIN 0.3 % (0.5-1.5); BG DEOXYHEMOGLOBIN 3.2 % (0.0-5.0); BG FRACTION INSPIRED OXYGEN 40; BG HCO3 ACT 21.4 mmol/L (22.0-26.0); BG METHEMOGLOBIN 0.1 % (0.0-1.5); BG OXYGEN SATURATION 96.8 % (92.0-98.5); BG OXYHEMOGLOBIN 96.4 % (94.0-97.0); BG PCO2 27.4 mmHg (35.0-45.0); BG PO2 88.7 mmHg (75.0-100.0); BG PRESSURE SUPPORT 12; BG SAMPLE SITE RIGHT RADIAL; BG TIDAL VOLUME(mL) 500 mL; BG TOTAL HEMOGLOBIN 11.9 g/dL (12.0-18.0); BG VENT MODE VENT - SIMV; BG VENT RATE 12 set
[2017-08-31] VITALS (24 sets, daily range): BP systolic 110–141; BP diastolic 71–87
[2017-08-31] MEDS: LACTULOSE 20G/30ML UDC NG SCH ×4 (00:13→17:54)
[2017-08-31 06:27] LABS: HEMATOCRIT. 34.9 % (36.0-48.0); MEAN CORPUSCULAR HEMOGLOBIN 31.7 pg (28.0-32.0); MEAN CORPUSCULAR VOLUME 92.1 fL (81.0-99.0); MEAN PLATELET VOLUME 9.3 fl (7.4-10.4); PLATELET 85 x1000/uL (130-400); RED BLOOD CELL COUNT 3.79 mill/uL (4.2-5.4); RED CELL DISTRIBUTION WIDTH 14.8 % (11.6-14.6)
[2017-08-31 06:43] LABS: PHOSPHORUS 3.4 mg/dL (2.5-4.9)
[2017-08-31 08:24] LABS: BG BASE EXCESS -1.6 mmol/L (-2.0-2.0); BG CARBOXYHEMOGLOBIN 0.9 % (0.5-1.5); BG DEOXYHEMOGLOBIN 3.9 % (0.0-5.0); BG FRACTION INSPIRED OXYGEN 40; BG HCO3 ACT 20.1 mmol/L (22.0-26.0); BG OXYGEN SATURATION 96.1 % (92.0-98.5); BG OXYHEMOGLOBIN 95.2 % (94.0-97.0); BG PCO2 25.2 mmHg (35.0-45.0); BG PH 7.519 (7.350-7.450); BG PO2 76.2 mmHg (75.0-100.0); BG PRESSURE SUPPORT 12; BG SAMPLE SITE RIGHT RADIAL; BG TIDAL VOLUME(mL) 500 mL; BG TOTAL HEMOGLOBIN 11.5 g/dL (12.0-18.0); BG VENT MODE VENT - SIMV; BG VENT RATE 12 set
[2017-08-31] MEDS: VANCOMYCIN 750 MG PREMIX 150 ML IV SCH (09:05)
[2017-08-31] MEDS: LEVETIRACETAM 750 MG in SODIUM CHLORIDE 0.9% 100 ML IV SCH ×2 (09:05→21:01)
[2017-08-31] MEDS: RIFAXIMIN 550 MG TABLET PO SCH ×2 (09:06→20:35)
[2017-08-31] MEDS: PANTOPRAZOLE SODIUM 40 MG/VIAL IV SCH ×2 (09:06→20:35)
[2017-08-31 11:00] LABS: INR 1.4; PARTIAL THROMBOPLASTIN TIME 40.7 sec (23.4-31.0); PROTHROMBIN TIME 14.5 sec (9.4-11.6)
[2017-08-31 11:53] LABS: AMMONIA 30 uMol/L (<32)
[2017-08-31] MEDS: PIPERACILLIN/TAZ 3.375G PREMIX 50 ML IV SCH ×2 (14:21→21:52)
[2017-08-31 14:45] LABS: PLATELET ESTIMATE DECREASED
[2017-09-01] VITALS (25 sets, daily range): BP systolic 98–145; BP diastolic 41–92
[2017-09-01] MEDS: LACTULOSE 20G/30ML UDC NG SCH ×4 (00:03→18:16)
[2017-09-01] MEDS: PIPERACILLIN/TAZ 3.375G PREMIX 50 ML IV SCH ×3 (05:48→22:46)
[2017-09-01 06:37] LABS: HEMATOCRIT. 36.9 % (36.0-48.0); HEMOGLOBIN. 12.7 g/dL (12.0-16.0); MEAN CORPUSCULAR HEMOGLOBIN 32.1 pg (28.0-32.0); MEAN CORPUSCULAR VOLUME 93.6 fL (81.0-99.0); MEAN PLATELET VOLUME 8.7 fl (7.4-10.4); PLATELET 84 x1000/uL (130-400); RED BLOOD CELL COUNT 3.94 mill/uL (4.2-5.4); RED CELL DISTRIBUTION WIDTH 14.9 % (11.6-14.6)
[2017-09-01 07:25] LABS: CHLORIDE 109 mEq/L (98-107)
[2017-09-01 07:32] LABS: PHOSPHORUS 3.4 mg/dL (2.5-4.9)
[2017-09-01 07:38] LABS: AMMONIA 54 uMol/L (<32)
[2017-09-01] MEDS: VANCOMYCIN 750 MG PREMIX 150 ML IV SCH (08:27)
[2017-09-01] MEDS: PANTOPRAZOLE SODIUM 40 MG/VIAL IV SCH ×2 (08:27→21:30)
[2017-09-01] MEDS: RIFAXIMIN 550 MG TABLET PO SCH ×2 (08:27→21:30)
[2017-09-01] MEDS: LEVETIRACETAM 750 MG in SODIUM CHLORIDE 0.9% 100 ML IV SCH (08:27)
[2017-09-01 11:53] LABS: PLATELET ESTIMATE DECREASED
[2017-09-01] MEDS ORDERED: LORAZEPAM 2MG/ML CPJ ONE (12:21)
[2017-09-01] MEDS: LORAZEPAM 2MG/ML CPJ IV PRN ×2 (13:34→15:40)
[2017-09-01] MEDS ORDERED: LEVETIRACETAM 1,000 MG in SODIUM CHLORIDE 0.9% 100 ML IV SCH (14:15)
[2017-09-01] MEDS: LEVETIRACETAM 1000MG/100ML 100 ML IV SCH (21:30)
[2017-09-02] VITALS (24 sets, daily range): BP systolic 99–132; BP diastolic 52–79
[2017-09-02] MEDS: LACTULOSE 20G/30ML UDC NG SCH ×4 (01:10→18:53)
[2017-09-02] MEDS: PIPERACILLIN/TAZ 3.375G PREMIX 50 ML IV SCH ×3 (06:34→21:32)
[2017-09-02] MEDS: VANCOMYCIN 1 G PREMIX 200 ML IV SCH (06:34)
[2017-09-02 07:56] LABS: AMMONIA 46 uMol/L (<32)
[2017-09-02] MEDS: LEVETIRACETAM 1000MG/100ML 100 ML IV SCH ×2 (09:59→21:32)
[2017-09-02] MEDS: PANTOPRAZOLE SODIUM 40 MG/VIAL IV SCH ×2 (09:59→21:32)
[2017-09-02] MEDS: RIFAXIMIN 550 MG TABLET PO SCH ×2 (10:10→21:32)
[2017-09-02 13:37] LABS: BASOPHILS % 0.8 % (0.0-2.0); EOSINOPHILS % 1.7 % (0.0-5.0); HEMATOCRIT. 32.3 % (36.0-48.0); LYMPHOCYTES % 12.2 % (20.0-50.0); MEAN CORPUSCULAR HEMOGLOBIN 31.8 pg (28.0-32.0); MEAN CORPUSCULAR VOLUME 93.4 fL (81.0-99.0); MEAN PLATELET VOLUME 9.7 fl (7.4-10.4); NEUTROPHILS % 71.3 % (40.0-76.0); PLATELET 86 x1000/uL (130-400); RED BLOOD CELL COUNT 3.46 mill/uL (4.2-5.4); RED CELL DISTRIBUTION WIDTH 14.8 % (11.6-14.6)
[2017-09-03] VITALS (26 sets, daily range): BP systolic 97–145; BP diastolic 61–89
[2017-09-03] MEDS: LACTULOSE 20G/30ML UDC NG SCH ×4 (03:19→17:51)
[2017-09-03] MEDS: PIPERACILLIN/TAZ 3.375G PREMIX 50 ML IV SCH ×3 (05:02→21:45)
[2017-09-03] MEDS: VANCOMYCIN 1 G PREMIX 200 ML IV SCH (05:02)
[2017-09-03 06:31] LABS: EOSINOPHILS % 2.1 % (0.0-5.0); HEMATOCRIT. 31.3 % (36.0-48.0); HEMOGLOBIN. 10.7 g/dL (12.0-16.0); LYMPHOCYTES % 13.4 % (20.0-50.0); MEAN CORPUSCULAR HEMOGLOBIN 32.1 pg (28.0-32.0); MEAN CORPUSCULAR VOLUME 93.5 fL (81.0-99.0); MEAN PLATELET VOLUME 9.8 fl (7.4-10.4); MONOCYTES % 9.1 % (2.0-8.0); NEUTROPHILS % 74.4 % (40.0-76.0); PLATELET 88 x1000/uL (130-400); RED BLOOD CELL COUNT 3.34 mill/uL (4.2-5.4); RED CELL DISTRIBUTION WIDTH 14.9 % (11.6-14.6)
[2017-09-03 06:35] LABS: CHLORIDE 112 mEq/L (98-107)
[2017-09-03 06:42] LABS: PHOSPHORUS 3.3 mg/dL (2.5-4.9)
[2017-09-03 06:49] LABS: AMMONIA 21 uMol/L (<32)
[2017-09-03 08:27] LABS: BG BASE EXCESS -1.9 mmol/L (-2.0-2.0); BG DEOXYHEMOGLOBIN 1.5 % (0.0-5.0); BG HCO3 ACT 21.2 mmol/L (22.0-26.0); BG METHEMOGLOBIN 0.1 % (0.0-1.5); BG OXYGEN SATURATION 98.5 % (92.0-98.5); BG OXYHEMOGLOBIN 97.4 % (94.0-97.0); BG PCO2 31.2 mmHg (35.0-45.0); BG PH 7.451 (7.350-7.450); BG PO2 120.7 mmHg (75.0-100.0); BG SAMPLE SITE RIGHT RADIAL; BG TIDAL VOLUME(mL) 500 mL; BG TOTAL HEMOGLOBIN 11.6 g/dL (12.0-18.0); BG VENT MODE VENT - SIMV; BG VENT RATE 12 set
[2017-09-03] MEDS ORDERED: POTASSIUM CHLORIDE INJ 40 MEQ in DEXT 5% WATER 250 ML IV SCH (09:00)
[2017-09-03] MEDS: RIFAXIMIN 550 MG TABLET PO SCH ×2 (09:50→21:45)
[2017-09-03] MEDS: PANTOPRAZOLE SODIUM 40 MG/VIAL IV SCH ×2 (09:50→21:45)
[2017-09-03] MEDS: LORAZEPAM 2MG/ML CPJ IV PRN (09:51)
[2017-09-03] MEDS: LEVETIRACETAM 1000MG/100ML 100 ML IV SCH (09:52)
[2017-09-03] MEDS: LEVETIRACETAM 1,250 MG in SODIUM CHLORIDE 0.9% 100 ML IV SCH (21:45)
[2017-09-04] VITALS (24 sets, daily range): BP systolic 87–130; BP diastolic 43–72
[2017-09-04] MEDS ORDERED: PROPOFOL 10MG/ML 100ML 100 ML IV PRN (00:15)
[2017-09-04] MEDS: LACTULOSE 20G/30ML UDC NG SCH ×2 (00:40→05:21)
[2017-09-04] MEDS: PIPERACILLIN/TAZ 3.375G PREMIX 50 ML IV SCH (05:21)
[2017-09-04] MEDS: VANCOMYCIN 1 G PREMIX 200 ML IV SCH (05:22)
[2017-09-04 06:20] LABS: BASOPHILS % 0.6 % (0.0-2.0); EOSINOPHILS % 1.7 % (0.0-5.0); HEMATOCRIT. 32.9 % (36.0-48.0); HEMOGLOBIN. 11.4 g/dL (12.0-16.0); LYMPHOCYTES % 10.6 % (20.0-50.0); MEAN CORPUSCULAR HEMOGLOBIN 32.5 pg (28.0-32.0); MEAN CORPUSCULAR VOLUME 93.8 fL (81.0-99.0); MEAN PLATELET VOLUME 9.9 fl (7.4-10.4); MONOCYTES % 6.5 % (2.0-8.0); NEUTROPHILS % 80.6 % (40.0-76.0); PLATELET 97 x1000/uL (130-400); RED BLOOD CELL COUNT 3.51 mill/uL (4.2-5.4); RED CELL DISTRIBUTION WIDTH 15.5 % (11.6-14.6)
[2017-09-04 06:32] LABS: CHLORIDE 112 mEq/L (98-107)
[2017-09-04 06:40] LABS: PHOSPHORUS 2.5 mg/dL (2.5-4.9)
[2017-09-04] MEDS: MORPHINE SULFATE 100 MG in DEXT 5% WATER 90 ML IV PRN ×3 (08:01→23:43)
[2017-09-04] MEDS: PANTOPRAZOLE SODIUM 40 MG/VIAL IV SCH (08:13)
[2017-09-04] MEDS: RIFAXIMIN 550 MG TABLET PO SCH (08:13)
[2017-09-04] MEDS: LEVETIRACETAM 1,250 MG in SODIUM CHLORIDE 0.9% 100 ML IV SCH (09:00)
[2017-09-04] MEDS ORDERED: LORAZEPAM 2MG/ML CPJ IV PRN (11:30)
[2017-09-05] VITALS (15 sets, daily range): BP systolic 81–103; BP diastolic 36–55
[2017-09-05] MEDS ORDERED: VANCOMYCIN 1250MG in DEXTROSE 5% WATER 250ML IV SCH (06:00)
[2017-09-05] MEDS: MORPHINE SULFATE 100 MG in DEXT 5% WATER 90 ML IV PRN ×3 (06:23→17:33)
[2017-09-06] VITALS: BP 79/30
[2017-09-06] MEDS: MORPHINE SULFATE 100 MG in DEXT 5% WATER 90 ML IV PRN ×4 (03:11→22:25)
[2017-09-06 04:00] VITALS: BP 80/32
[2017-09-06 08:00] VITALS: BP 72/29
[2017-09-06 12:00] VITALS: BP 81/31
[2017-09-06 16:00] VITALS: BP 81/33
[2017-09-06 20:00] VITALS: BP 81/39
[2017-09-07] VITALS: BP 79/33
[2017-09-07 04:00] VITALS: BP 72/29
[2017-09-07] MEDS: MORPHINE SULFATE 100 MG in DEXT 5% WATER 90 ML IV PRN ×2 (04:11→11:48)
[2017-09-07 08:00] VITALS: BP 69/25
[2017-09-07 12:00] VITALS: BP 72/24
[2017-09-07 16:00] VITALS: BP 79/27
[2017-09-07] MEDS: MORPHINE SULFATE 4 MG/ML CPJ (NOT FOR IM USE) IV PRN ×2 (18:06→22:22)
[2017-09-07 20:00] VITALS: BP 81/29
[2017-09-08] VITALS: BP 89/27
[2017-09-08] MEDS: MORPHINE SULFATE 4 MG/ML CPJ (NOT FOR IM USE) IV PRN ×6 (01:40→23:35)
[2017-09-08 04:00] VITALS: BP 90/28
[2017-09-08 08:00] VITALS: BP 107/48
[2017-09-08 12:00] VITALS: BP 130/87
[2017-09-08] MEDS: LORAZEPAM 2MG/ML CPJ IV PRN ×3 (13:32→23:38)
[2017-09-08 15:53] VITALS: BP 91/34
[2017-09-08 20:00] VITALS: BP 90/31
[2017-09-09] VITALS: BP_SYST 89; BP_DIAS 40; BP_DIAS 41
[2017-09-09 04:00] VITALS: BP 83/26
[2017-09-09] MEDS: MORPHINE SULFATE 4 MG/ML CPJ (NOT FOR IM USE) IV PRN ×5 (04:27→18:03)
[2017-09-09] MEDS: LORAZEPAM 2MG/ML CPJ IV PRN ×3 (04:27→15:36)
[2017-09-09 08:00] VITALS: BP 67/28
[2017-09-09 12:00] VITALS: BP 69/26
[2017-09-09 16:00] VITALS: BP 65/18
[2017-09-09 18:03] VITALS: BP 65/18
== END 2017-09-09 19:30 | disposition expired | DRG 870 ==
LOC: ER 13:32 → CVICU 16:51 → EDBEDREQSVC 16:52 → EDBEDREQTM 16:52 → EDBEDREQ 16:52 → ENRESERV 19:30 → 6EST 09-05 16:20
PROVIDERS: ADMIT Internal Medicine; ATTEND Internal Medicine
PROC: 5A1955Z Respiratory Ventilation, Greater than 96 Consecutive Hours (ICD-10-PCS; principal; 2017-08-24)
PROC: 0BH17EZ Insertion of Endotracheal Airway into Trachea, Via Natural or Artificial Opening (ICD-10-PCS; 2017-08-24)
PROC: 30233L1 Transfusion of Nonautologous Fresh Plasma into Peripheral Vein, Percutaneous Approach (ICD-10-PCS; 2017-08-24)
PROC: 30233K1 Transfusion of Nonautologous Frozen Plasma into Peripheral Vein, Percutaneous Approach (ICD-10-PCS; 2017-08-24)
PROC: 05HY33Z Insertion of Infusion Device into Upper Vein, Percutaneous Approach (ICD-10-PCS; 2017-08-25)
PROC: 4A00X4Z Measurement of Central Nervous Electrical Activity, External Approach (ICD-10-PCS; 2017-08-26)
PROC: 4A00X4Z Measurement of Central Nervous Electrical Activity, External Approach (ICD-10-PCS; 2017-08-31)
DX: A41.9 Sepsis, unspecified organism (principal); J96.00 Acute respiratory failure, unspecified whether with hypoxia or hypercapnia; K72.00 Acute and subacute hepatic failure without coma; J69.0 Pneumonitis due to inhalation of food and vomit; N17.0 Acute kidney failure with tubular necrosis; E43 Unspecified severe protein-calorie malnutrition; K85.90 Acute pancreatitis without necrosis or infection, unspecified; G93.1 Anoxic brain damage, not elsewhere classified; E87.4 Mixed disorder of acid-base balance; G40.911 Epilepsy, unspecified, intractable, with status epilepticus; D68.9 Coagulation defect, unspecified; M62.82 Rhabdomyolysis; K92.2 Gastrointestinal hemorrhage, unspecified; N39.0 Urinary tract infection, site not specified; E87.1 Hypo-osmolality and hyponatremia; E87.0 Hyperosmolality and hypernatremia; K56.7 Ileus, unspecified; T39.1X1A Poisoning by 4-Aminophenol derivatives, accidental (unintentional), initial encounter; Z66 Do not resuscitate; E83.51 Hypocalcemia; E83.39 Other disorders of phosphorus metabolism; D69.6 Thrombocytopenia, unspecified; D64.9 Anemia, unspecified; E87.6 Hypokalemia; E87.8 Other disorders of electrolyte and fluid balance, not elsewhere classified; F20.9 Schizophrenia, unspecified; F31.9 Bipolar disorder, unspecified; I10 Essential (primary) hypertension; K14.0 Glossitis; N63.0 Unspecified lump in unspecified breast; T88.4XXA Failed or difficult intubation, initial encounter; Z51.5 Encounter for palliative care; Z82.49 Family history of ischemic heart disease and other diseases of the circulatory system; Z91.14 Patient's other noncompliance with medication regimen; Z91.5 Personal history of self-harm; Z88.8 Allergy status to other drugs, medicaments and biological substances; Z79.899 Other long term (current) drug therapy
CPT/HCPCS: 31500; 36415; 36569; 36600; 70450; 70551; 71045; 74018; 76705; 76770; 76937; 80048; 80053; 80076; 80156; 80165; 80202; 80305; 80307; 80329; 81003; 81025; 82140; 82150; 82375; 82550; 82805; 82962; 83605; 83690; 83735; 84100; 84132; 84478; 84484; 84703; 85014; 85018; 85025; 85384; 85610; 85730; 86225; 86256; 86705; 86709; 86803; 86850; 86900; 86927; 87040; 87070; 87340; 93005; 94002; 94003; 94640; 96365; 96366; 96367; 96375; 96376; 99291; A6261; C1725; C1769; C9113; G0482; J0132; J1165; J1953; J2060; J2250; J2270; J2543; J2704; J2765; J3010; J3370; J3430; J3480; J3490; J7030; J7040; J7042; J7050; J7060; J7070; P9017; A4315